=== PATIENT | male | born 1960 | race Caucasian/White ===

== ENCOUNTER 2019-01-05 23:13 | Inpatient (IN) | payer BC ==
[~2019-01-05] VITALS: Ht 172.7 cm; Wt 111.1 kg
== END 2019-01-06 13:10 | disposition designated cancer center or children's hospital (05) | DRG 282 ==
LOC: ER 23:13 → ICU-2 01-06 07:29
PROVIDERS: ADMIT Internal Medicine
PROC: B246ZZZ Ultrasonography of Right and Left Heart (ICD-10-PCS; principal; 2019-01-06)
DX: I21.4 Non-ST elevation (NSTEMI) myocardial infarction (principal); I11.9 Hypertensive heart disease without heart failure